=== PATIENT | male | born 1960 | race African-American/Black ===

== ENCOUNTER 2016-12-18 07:01 | Emergency (ER) | payer OTHER | END 2016-12-18 07:40 | disposition home or self-care (01) | LOC: ERS 07:01 | DX: K02.9 Dental caries, unspecified (principal); K03.81 Cracked tooth; K04.7 Periapical abscess without sinus; J44.9 Chronic obstructive pulmonary disease, unspecified; K21.9 Gastro-esophageal reflux disease without esophagitis; M10.9 Gout, unspecified; I10 Essential (primary) hypertension; G89.29 Other chronic pain; F17.210 Nicotine dependence, cigarettes, uncomplicated | CPT/HCPCS: 99282 ==

== ENCOUNTER 2017-03-10 10:19 | Emergency (ER) | payer OTHER | END 2017-03-10 11:30 | disposition home or self-care (01) | LOC: ERS 10:19 | DX: K04.7 Periapical abscess without sinus (principal); K02.9 Dental caries, unspecified; J06.9 Acute upper respiratory infection, unspecified; J44.9 Chronic obstructive pulmonary disease, unspecified; K21.9 Gastro-esophageal reflux disease without esophagitis; M10.9 Gout, unspecified; I10 Essential (primary) hypertension; F17.210 Nicotine dependence, cigarettes, uncomplicated | CPT/HCPCS: 99406 ==

== ENCOUNTER 2017-04-24 07:43 | Emergency (ER) | payer OTHER | END 2017-04-24 08:23 | disposition home or self-care (01) | LOC: ERS 07:43 | DX: K02.9 Dental caries, unspecified (principal); J44.9 Chronic obstructive pulmonary disease, unspecified; K21.9 Gastro-esophageal reflux disease without esophagitis; M10.9 Gout, unspecified; I10 Essential (primary) hypertension; F32.9 Major depressive disorder, single episode, unspecified; F17.210 Nicotine dependence, cigarettes, uncomplicated; Z71.6 Tobacco abuse counseling | CPT/HCPCS: 64400; 99406 ==

== ENCOUNTER 2017-09-11 11:37 | Outpatient (CLI) | payer OTHER ==
[2017-09-11 12:54] LABS: Actual Bicarbonate (HCO3a) 23.8 mEq/L (22-28); O2 Tension (PaO2) 73.8 mmHg (80.0-100.0); pH, Arterial 7.43 (7.35-7.45)
[2017-09-11 12:55] LABS: Base Excess (BEa) -0.2 mEq/L (-2.0 to +3.0); Hemoglobin (Hb) 15.1 g/dL (14.0-18.0)
[2017-09-11 12:56] LABS: Analyzer IN Cardio OR; Calcium, Ionized 1.2 mmol/L (1.12-1.30); Puncture Site LR
--- NOTE | 2017-09-11 15:51 | RAD ---
CHEST TWO VIEW: 09/11/17 HISTORY: Dyspnea. COMPARISON: Chest radiograph 2014. FINDINGS: Lungs are without focal air space consolidation, pneumothorax or effusion. Increased extrapleural fat left lung base. No acute osseous abnormality. IMPRESSION: No acute intrathoracic abnormality nor significant change. POS: C
== END 2017-09-11 11:38 | disposition home or self-care (01) ==
LOC: CP 11:37
PROVIDERS: ATTEND Internal Medicine Critical Care Medicine
DX: J44.9 Chronic obstructive pulmonary disease, unspecified (principal); G47.33 Obstructive sleep apnea (adult) (pediatric)
CPT/HCPCS: 71046; 82805; 94060; 94727; 94729

== ENCOUNTER 2018-03-30 07:58 | Emergency (ER) | payer OTHER ==
[2018-03-30] MEDS ORDERED: predniSONE 20 MG TAB ONE (08:54)
[2018-03-30] MEDS ORDERED: Lidocaine 1% w/Epinephrine 1:100K 20 ML VIAL ONE (08:54)
--- NOTE | 2018-03-30 10:30 | RAD ---
CHEST 2 VIEWS: Date: 03/30/18 HISTORY: Cough. COMPARISON: Radiograph dated 10/18/17. FINDINGS: Lungs are clear. No pneumothorax or effusion. Cardiac silhouette and mediastinal contours within norm al limits. Low grade spondylosis mid thoracic spine. IMPRESSION: No acute intrathoracic abnormality. POS: H
== END 2018-03-30 12:03 | disposition home or self-care (01) ==
LOC: ERS 07:58
DX: J44.1 Chronic obstructive pulmonary disease with (acute) exacerbation (principal); K11.6 Mucocele of salivary gland; K21.9 Gastro-esophageal reflux disease without esophagitis; M10.9 Gout, unspecified; I10 Essential (primary) hypertension; E78.00 Pure hypercholesterolemia, unspecified; G47.30 Sleep apnea, unspecified; F32.9 Major depressive disorder, single episode, unspecified; F17.210 Nicotine dependence, cigarettes, uncomplicated; Z79.899 Other long term (current) drug therapy; Z79.82 Long term (current) use of aspirin; Z71.6 Tobacco abuse counseling
CPT/HCPCS: 10160; 71046; 87070; 87205; 87804; 94640; 99406; J2001; J7506; J7620

== ENCOUNTER 2018-08-06 07:56 | Outpatient (CLI) | payer OTHER ==
--- NOTE | 2018-08-06 09:33 | CT ---
CT FACE WITHOUT CONTRAST: HISTORY: Facial swelling. COMPARISON: None. FINDINGS: Old left medial orbital wall fracture. The zygoma, zygomatic arches, and pterygoid plates are intact . Mucus retention cyst, right maxillary sinus. There is a large, probably cystic mass in the left mandibular body, extending into the mental foramen . This has discontinuous peripheral periosteal calcification. No definite extension to the adjacent musculature, although limited without intravenous administratio n. The internal Hounsfield units are greater than simple fluid. No adenopathy. Globes are normal. Scalp soft tissues are unremarkable. IMPRESSION: Large lytic mass of the left mandibular body, extending into the mental foramen, with incomplete, dis continuous, peripheral periosteal calcifications. This is incompletely evaluated without intravenous contrast. The differential includes ameloblastoma/ameloblastic carcinoma. MRI with and without con trast would be helpful to further delineate any solid component to this mass and differentiate it fro m a odontogenic tumor, bone cyst, and odontogenic myxoma. OMFS consultation recommended. POS: CET
== END 2018-08-06 07:57 | disposition home or self-care (01) ==
LOC: CT 07:56
PROVIDERS: ATTEND Family Medicine
DX: K02.9 Dental caries, unspecified (principal); D49.2 Neoplasm of unspecified behavior of bone, soft tissue, and skin; M89.9 Disorder of bone, unspecified
CPT/HCPCS: 70486

== ENCOUNTER 2018-09-04 07:43 | Outpatient (CLI) | payer OTHER ==
--- NOTE | 2018-09-04 12:11 | MRI ---
MRI FACE WITH AND WITHOUT CONTRAST MRI BRAIN WITH AND WITHOUT CONTRAST: Date: 09/04/18 COMPARISON: CT dated 08/06/18. INDICATION: Cystic mass of the left mandible. FINDINGS: Redemonstration of a lobular, septated cystic mass of the left mandible, with communication at the le ft parasymphyseal region of the mandibular body underlying root of a now absent premolar. There is no mass-like enhancement within the cystic mass. The septae demonstrates thin, linear, [id number] en hancement. Mass is grossly stable in volume to preceding CT, approximately 5.1 cm in obliquely orient ed AP dimension x 2.6 cm in transverse dimension. The surrounding bone of the left mandible is nonede matous and the mass does not demonstrate aggressive/infiltrative features. No surrounding soft tissue edema of significance or evidence to indicate invasion of regional soft tissues. Imaging of the brain is performed from the level of the vertex through the posterior fossa which reve als normal size ventricular system and absence of midline shift or significant intra-axial mass effec t. No pathologic intra-axial enhancement. Incidental note of retention cyst formation of posteromedial right maxillary sinus. There is also inc idental note of cervical spondylosis with central canal narrowing, incompletely evaluated on the basi s of this exam. IMPRESSION: Cystic mass without internal mass-like or nodular enhancement. Thin internal septations demonstrate l inear enhancement. The mass is nonaggressive in its imaging features, and given the presence of a foc al neck approximating an area of absent left mandibular premolar, this likely demonstrates the site o f origin of this cystic lesion. Therefore, given constellation of imaging features, the primary consi deration would include entities such as odontogenic keratocyst, or other cystic odontogenic lesion. A neurysmal bone cyst is a consideration. Ameloblastoma is considered less likely, given absence of sig nificant internal enhancement. POS: ROSE
== END 2018-09-04 07:44 | disposition home or self-care (01) ==
LOC: BICMRI 07:43
PROVIDERS: ATTEND Student in an Organized Health Care Education/Training Program
DX: D49.2 Neoplasm of unspecified behavior of bone, soft tissue, and skin (principal)
CPT/HCPCS: 70543; 82565

== ENCOUNTER 2023-02-13 08:58 | Outpatient (CLI) | payer OTHER ==
[2023-02-13] MEDS ORDERED: Iopamidol 370 76% 100 ML VIAL ONE (13:46)
[2023-02-13] MEDS ORDERED: GASTROGRAFIN 30 ML BOT ONE (13:46)
== END 2023-02-13 08:59 | disposition home or self-care (01) ==
LOC: CT 08:58
PROVIDERS: ATTEND Student in an Organized Health Care Education/Training Program
DX: R10.12 Left upper quadrant pain (principal); E27.9 Disorder of adrenal gland, unspecified; Q63.2 Ectopic kidney; I70.90 Unspecified atherosclerosis; R93.2 Abnormal findings on diagnostic imaging of liver and biliary tract
CPT/HCPCS: 74177; Q9963; Q9967

== ENCOUNTER 2023-05-17 11:57 | Outpatient (CLI) | payer OTHER | END 2023-05-17 11:58 | disposition home or self-care (01) | LOC: CT 11:57 | PROVIDERS: ATTEND Student in an Organized Health Care Education/Training Program | DX: Z12.2 Encounter for screening for malignant neoplasm of respiratory organs (principal); F17.210 Nicotine dependence, cigarettes, uncomplicated | CPT/HCPCS: 71271 ==